=== PATIENT | male | born 1975 | race Two or more races ===

== ENCOUNTER 2017-05-20 02:34 | Emergency (ER) | payer OTHER ==
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
== END 2017-05-20 05:15 | disposition home or self-care (01) ==
LOC: CED 02:34
DX: S09.90XA Unspecified injury of head, initial encounter (principal); S02.2XXA Fracture of nasal bones, initial encounter for closed fracture; S00.83XA Contusion of other part of head, initial encounter; Z23 Encounter for immunization; Y04.0XXA Assault by unarmed brawl or fight, initial encounter; Y92.009 Unspecified place in unspecified non-institutional (private) residence as the place of occurrence of the external cause
CPT/HCPCS: 70450; 70486; 72125; 90471; 90715; 99284